=== PATIENT | female | born 1965 | race Two or more races ===

== ENCOUNTER 2019-03-10 21:27 | Emergency (ER) | payer OTHER ==
[~2019-03-10] VITALS: Ht 167.6 cm; Wt 68.0 kg
[2019-03-10 23:31] VITALS: BP 160/90
[2019-03-10] MEDS ORDERED: KETOROLAC TROMETH 60MG/2ML VIAL IM ONE (23:45)
== END 2019-03-11 00:08 | disposition home or self-care (01) ==
LOC: ER 21:27 → EDBD 21:27 → ER 03-11 00:08
DX: S83.92XA Sprain of unspecified site of left knee, initial encounter (principal); M19.90 Unspecified osteoarthritis, unspecified site; W01.0XXA Fall on same level from slipping, tripping and stumbling without subsequent striking against object, initial encounter; Y93.89 Activity, other specified; Y99.8 Other external cause status; Y92.89 Other specified places as the place of occurrence of the external cause
CPT/HCPCS: 73562; 96372; 99283; J1885

== ENCOUNTER 2024-07-26 20:23 | Emergency (ER) | payer BC, OTHER ==
[~2024-07-26] VITALS: Ht 154.9 cm; Wt 60.7 kg
[2024-07-26 21:15] LABS: Basophils # (auto) 0.1 10 ^3/uL (0-0.2); Basophils % (auto) 0.9 % (0.0-2.0); Eosinophils # (auto) 0.1 10 ^3/uL (0-0.8); Eosinophils % (auto) 1.2 % (0.0-7.0); Hematocrit 38.8 % (36.0-46.0); Hemoglobin 13.3 g/dL (12.2-16.2); Lymphocytes # (auto) 2.5 10 ^3/uL (0.4-5.4); Lymphocytes % (auto) 33.6 % (10.0-50.0); Mean Corpuscular Hemoglobin 29.2 pg (28.0-32.0); Mean Corpuscular Hgb Conc. 34.2 g/dL (32.0-36.0); Mean Corpuscular Volume 85.2 fL (80.0-100.0); Monocytes # (auto) 0.7 10 ^3/uL (0-1.3); Monocytes % (auto) 8.7 % (0.0-12.0); Neutrophils # (auto) 4.2 10 ^3/uL (1.6-8.6); Neutrophils % (auto) 55.6 % (37.0-80.0); Nucleated Red Blood Cells % 0.1 %; Platelet Count (auto) 441 10^3/uL (140-450); Red Blood Cells 4.56 10^6/uL (4.0-5.20); White Blood Cell 7.5 10^3/uL (4.4-10.8)
--- NOTE | 2024-07-26 21:16 | DVH ---
CHEST RADIOGRAPH Indication: Chest pain Technique: Single frontal view of the chest was obtained Comparison: None FINDINGS: Lines and Tubes: None Lungs: No focal consolidation. Pleura: No effusion. No pneumothorax. Cardiomediastinal contours: Unremarkable Bones: No acute osseous abnormality. IMPRESSION: 1. No acute cardiopulmonary disease.
[2024-07-26 21:34] LABS: INR 0.97 (0.9-1.15); Partial Thromboplastin Time 26.5 SEC (24.5-34.5); Prothrombin Time 10.3 sec (9.3-11.8)
[2024-07-26] MEDS ORDERED: KETOROLAC TROMETH 30 MG/ML 1ML VIAL IV ONE (21:45)
--- NOTE | 2024-07-26 21:52 | ED.PDOC ---
History of Present Illness HPI Comments Linh Moore is a 59-year-old female patient who presents to the ED with focal left-sided chest pain which started at 1:00 p.m. 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 Patient reports presenting productive cough w ith clear phlegm for the past three weeks associated with nausea and vomiting of clear emesis. Patient says pain worsens when coughing, moving arms and with palpation, does not worsened with physical activity like going upstairs. Denies palpitation, syncope, dyspnea, sick contacts, bleeding, fever, chills, abdominal pain, diarrhea, constipation, recent travel and motor or sensory deficits. 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 Social history: Lives in [place] with who has Alzheimer's dementia and she is the caregiver. Denies tobacco, alcohol and other drug abuse Allergies: Denies Home medication: Bupropion Chief Complaint: Rib Pain Time Seen by MD: 20:33 Primary Care Provider: KARENA Allergies: Coded Allergies: No Known Drug Allergy (Verified Allergy, Unknown, 07/26/24) Mode of Arrival: Ambulatory Past Medical History PAST MEDICAL HISTORY: Arthritis Surgical History: SUPERINTENDENT OF GENERATION History: No Pertinent SUPERINTENDENT OF GENERATION History Social History Smoker: Non-Smoker Alcohol: Denies ETOH Use Drugs: Denies Drug Use Lives In: Home Physical Exam General Appearance: No Apparent Distress, Normal HEENT: Normal ENT Inspection, Pharynx Normal, TMs Normal Neck: Full Range of Motion, Non-Tender, Normal, Normal Inspection Respiratory: Chest Non-Tender, Lungs Clear, No Accessory Muscle Use, No Respiratory Distress, Normal Breath Sounds Cardiovascular: No Edema, No JVD, No Murmur, No Gallop, Normal Peripheral Pulses, Regular Rate/Rhythm, Other (Costal tenderness on palpation at level of 9th rib in midclavicular line of left hemithorax) Breast Exam: Deferred Gastrointestinal: No Organomegaly, Non Tender, No Pulsatile Mass, Normal Bowel Sounds, Soft Genitalia: Deferred Pelvic: Deferred Rectal: Deferred Extremities: No calf tenderness, Normal capillary refill, Normal inspection, Normal range of motion, Non-tender, No pedal edema Neurologic: Alert, 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 Was a procedure done?: No EKG EKG : Comments Sinus rhythm at 75 beats per minute, narrow QRS, no ST alteration. Differential Dx Considerations may include: Costochondritis, LA, pulmonary embolism, musculoskeletal pain X-Ray, Labs, Meds, VS Vital Signs Date Time Temp Pulse Resp B/P (MAP) Pulse Ox O2 Delivery O2 Flow Rate FiO2 07/26/24 20:37 98.1 71 16 149/85 (106) 99 07/26/24 20:33 72 Lab Test 07/26/24 21:02 Range/Units White Blood Count 7.5 4.4-10.8 10^3/uL Red Blood Count 4.56 4.0-5.20 10^6/uL Hemoglobin 13.3 12.2-16.2 g/dL Hematocrit 38.8 36.0-46.0 % Mean Corpuscular Volume 85.2 80.0-100.0 fL Mean Corpuscular Hemoglobin 29.2 28.0-32.0 pg Mean Corpuscular Hemoglobin Concent 34.2 32.0-36.0 g/dL Red Cell Distribution Width 14.0 11.8-14.3 % Platelet Count 441 140-450 10^3/uL Mean Platelet Volume 7.4 6.9-10.8 fL Neutrophils (%) (Auto) 55.6 37.0-80.0 % Lymphocytes (%) (Auto) 33.6 10.0-50.0 % Monocytes (%) (Auto) 8.7 0.0-12.0 % Eosinophils (%) (Auto) 1.2 0.0-7.0 % Basophils (%) (Auto) 0.9 0.0-2.0 % Neutrophils # (Auto) 4.2 1.6-8.6 10 ^3/uL Lymphocytes # (Auto) 2.5 0.4-5.4 10 ^3/uL Monocytes # (Auto) 0.7 0-1.3 10 ^3/uL Eosinophils # (Auto) 0.1 0-0.8 10 ^3/uL Basophils # (Auto) 0.1 0-0.2 10 ^3/uL Nucleated Red Blood Cells 0.1 % Prothrombin Time 10.3 9.3-11.8 sec Prothrombin Time INR 0.97 0.9-1.15 Activated Partial Thromboplast Time 26.5 24.5-34.5 SEC Sodium Level Pending Potassium Level Pending Chloride Level Pending Carbon Dioxide Level Pending Anion Gap Pending Blood Urea Nitrogen Pending Creatinine Pending Glomerular Filtration Rate Calc Pending BUN/Creatinine Ratio Pending Serum Glucose Pending Calcium Level Pending Phosphorus Level Pending Magnesium Level Pending Total Bilirubin Pending Aspartate Amino Transferase (AST) Pending Alanine Aminotransferase (ALT) Pending Alkaline Phosphatase Pending Troponin I High Sensitivity < 3 L </=34 ng/L Total Protein Pending Albumin Pending Thyroid Stimulating Hormone (TSH) 0.38 L 0.55-4.78 uIU/mL X-Ray, Labs, Meds, VS Comment Reviewed vital signs, chest x-ray, laboratory findings (troponin less than three, TSH low), urine pending Time of 1ST Reevaluation: 22:00 Reevaluation 1ST: Unchanged Patient Education/Counseling: Diagnosis, Treatment, Prognosis Family Education/Counseling: Diagnosis, Treatment, Prognosis Departure 1 Departure Time of Disposition: 22:00 Impression: Primary Impression: Costochondritis Disposition: 01 HOME / SELF CARE / HOMELESS Condition: Stable Additional Instructions: Reviewed laboratory findings (troponin less than three, TSH low), vital signs, chest x-ray, urine analysis pending. Probable cause of chest pain is costochondritis, recommend ibuprofen [id number]. Patient hemodynamically stable, mild chest pain, laboratory findings show negative troponin, EKG with no ST elevation, in condition to be discharged. 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 Critical Care Note Critical Care Time?: No Stability Stability form required: No Heart Score Heart Score: Heart Score Response (Comments) Value History Slightly Suspicious 0 EKG Normal 0 Age 45-64 1 Risk Factors 1 or 2 risk factors 1 Troponin Normal limit 0 Total 2 SIXTO GAFFNEY RESIDENT Jul 26, 2024 21:52
[2024-07-26 22:04] LABS: Alanine Aminotransferase 27 U/L (7-40); Alkaline Phosphatase 82 U/L (46-116); Anion Gap 9 (5-15); Aspartate Aminotransferase 17 U/L (13-40); Blood Urea Nitrogen 13 mg/dL (9-23); Calcium 10.1 mg/dL (8.7-10.4); Carbon Dioxide 23 mmol/L (20-31); Glucose 103 mg/dL (74-106); Magnesium 2.1 mg/dL (1.6-2.6); Potassium 4.3 mmol/L (3.5-5.1); Sodium 140 mmol/L (136-145)
[2024-07-26 22:05] LABS: Bilirubin, Total 0.7 mg/dL (0.2-1.0); Total Protein 8.1 g/dL (5.7-8.2)
[2024-07-26 22:16] LABS: Albumin 5.3 g/dL (3.2-4.8); Chloride 108 mmol/L (98-107); Phosphorus 2.4 mg/dL (2.4-5.1)
[2024-07-26 23:10] VITALS: BP 136/87; TEMP 98.2
[2024-07-26] MEDS: KETOROLAC TROMETH 60MG/2ML VIAL IM ONE (23:15)
[2024-07-26 23:21] VITALS: PULSE 72; RESP 16; O2SAT 99
--- NOTE | 2024-07-27 12:55 | ECG ---
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
== END 2024-07-26 23:24 | disposition home or self-care (01) ==
LOC: ER 20:23
DX: M94.0 Chondrocostal junction syndrome [Tietze] (principal); M19.90 Unspecified osteoarthritis, unspecified site; J45.909 Unspecified asthma, uncomplicated; Z79.899 Other long term (current) drug therapy
CPT/HCPCS: 36415; 71045; 80053; 83735; 84100; 84443; 84484; 85025; 85610; 85730; 93005; 96372; 99285; J1885